=== PATIENT | male | born 1995 | race Caucasian/White ===

== ENCOUNTER 2022-03-16 10:28 | Emergency (ER) | payer OTHER ==
[~2022-03-16] VITALS: Ht 170.2 cm; Wt 65.3 kg
[2022-03-16 10:30] VITALS: BP_SYST 141
[2022-03-16] MEDS ORDERED: LIDOCAINE 1% 10 MG/ML, 20 ML MDV INJ ONE (11:00)
[2022-03-16] MEDS ORDERED: BACITRACIN 1 GM OINT TP ONE (11:00)
[2022-03-16 11:25] VITALS: BP_SYST 139
== END 2022-03-16 11:26 | disposition home or self-care (01) ==
LOC: SED 10:28
DX: S01.81XA Laceration without foreign body of other part of head, initial encounter (principal); Z79.899 Other long term (current) drug therapy; W31.1XXA Contact with metalworking machines, initial encounter; Y93.89 Activity, other specified; Y92.89 Other specified places as the place of occurrence of the external cause; Y99.8 Other external cause status
CPT/HCPCS: 99282; 12013; J2001